=== PATIENT | male | born 1975 | race Caucasian/White ===

== ENCOUNTER 2022-12-30 16:00 | Emergency (ER) | payer OTHER ==
[2022-12-30 18:26] LABS: Basophils % (A) 0 %; Eosinophils # (A) 0.1 k/uL (0-0.7); Eosinophils % (A) 2 %; HCT 43.6 % (39.0-53.0); HGB 14.7 gm/dL (13.0-17.5); Lymphocytes # (A) 1.7 k/uL (1.0-4.8); Lymphocytes % (A) 19 %; MCH 29.9 pg (25.0-35.0); MCHC 33.6 g/dL (31.0-37.0); Mean Platelet Volume 6.9; Monocytes # (A) 0.5 k/uL (0-1.0); Monocytes % (A) 5 %; Neutrophils # (A) 6.5 k/uL (1.3-7.7); Neutrophils % (A) 73 %; Platelet Count 272 k/uL (150-450); RDW 12.1 % (11.5-15.5)
[2022-12-30 18:27] LABS: Appearance,Urine Clear (Clear); Bilirubin,Urine Negative (Negative); Blood,Urine Trace (Negative); Color,Urine Colorless; Glucose,Urine (UA) Negative (Negative); Ketones,Urine Negative (Negative); Leukocyte Esterase,Urine Negative (Negative); Mucus,Urine Rare /hpf; Nitrite,Urine Negative (Negative); PH, Urine 7.5 (5.0-8.0); Protein,Urine Negative (Negative); RBC,Urine 1 /hpf (0-5); Specific Gravity,Urine 1.006 (1.001-1.035); Urobilinogen,Urine <2.0 mg/dL (<2.0)
--- NOTE | 2022-12-30 18:36 | XR ---
EXAMINATION TYPE: XR KUB DATE OF EXAM: 12/30/2022 6:29 PM INDICATION: Patient age:Male; 47 years old; Reason for study: abdominal pain; COMPARISON: None. TECHNIQUE: One radiographic view of the abdomen was obtained. FINDINGS: The bowel gas pattern is nonspecific without dilated loops of small or large bowel. There i s no evidence for organomegaly or pneumoperitoneum. The osseous structures are intact. No abnormal calcifications are present. Fecal material and gas are demonstrated throughout the colon and rectum. IMPRESSION: Nonspecific bowel gas pattern without radiographic evidence for acute process.
[2022-12-30 18:46] LABS: ALT 21 U/L (4-49); AST 20 U/L (17-59); African American GFR (CKD) >90 (>60 ml/min/1.73 sqM); Albumin 4.2 g/dL (3.5-5.0); Alkaline Phosphatase 71 U/L (38-126); Amylase 105 U/L (30-110); Anion Gap 11 mmol/L; Blood Urea Nitrogen 10 mg/dL (9-20); Calcium 9.3 mg/dL (8.4-10.2); Carbon Dioxide 29 mmol/L (22-30); Chloride 103 mmol/L (98-107); Glucose 179 mg/dL (74-99); Lipase 407 U/L (23-300); Non-African American GFR(CKD) >90 (>60 ml/min/1.73 sqM); Potassium 4.1 mmol/L (3.5-5.1); Sodium 143 mmol/L (137-145); Total Bilirubin 0.4 mg/dL (0.2-1.3); Total Protein 7.3 g/dL (6.3-8.2)
[2022-12-30] MEDS ORDERED: LORazepam 2 MG/ML INJ IV STA (19:12)
--- NOTE | 2022-12-30 20:14 | CT ---
EXAMINATION TYPE: CT abdomen pelvis w con CT DLP: 1118.8 mGycm, Automated exposure control for dose reduction was used. DATE OF EXAM: 12/30/2022 8:07 PM COMPARISON: None CLINICAL INDICATION:Male, 47 years old with history of RLQ and periumbilical pain; Abdomen pain, no n ausea/vomiting. Hx of hernia. TECHNIQUE: Axial CT of the abdomen and pelvis. Sagittal and coronal reformats were created on a [employer] workstation. Contrast used:100cc mL of Isovue 300 with IV Contrast, Oral contrast used: without Oral Contrast FINDINGS: LOWER CHEST: Unremarkable ABDOMEN LIVER: Subcentimeter probable hepatic cyst. GALLBLADDER AND BILE DUCTS: Large gallstone present. No gallbladder wall thickening or pericholecysti c fluid. PANCREAS: Unremarkable. SPLEEN: Unremarkable. ADRENAL GLANDS: Unremarkable. KIDNEYS AND URETERS: No evidence of hydronephrosis or renal calculus. The ureters are unremarkable. PELVIS BLADDER: Unremarkable REPRODUCTIVE: Unremarkable. ABDOMEN & PELVIS STOMACH AND BOWEL: No evidence of bowel obstruction. Scattered colonic diverticula. The appendix is v isualized and within normal limits for size. There is high density material within the lumen. PERITONEUM/RETROPERITONEUM: No evidence of pneumoperitoneum or free fluid. VASCULATURE: No evidence of aortic aneurysm. MUSCULOSKELETAL: No acute osseous abnormalities LYMPH NODES: No gross evidence for lymphadenopathy. SOFT TISSUE/ABDOMINAL WALL: Fat-containing umbilical hernia. Bilateral fat-containing inguinal hernia s left greater than right. IMPRESSION: 1. The appendix is visualized and within normal limits for size. High density material within could represent appendicoliths. No evidence for appendicitis. No finding to definitively correlate with pat ient's symptoms. 2. Fat-containing umbilical hernia. 3. No obstructive uropathy or renal calculus. 4. Colonic diverticulosis. 5. Cholelithiasis.
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
[2022-12-30 20:48] VITALS: BP 156/97; PULSE 86; RESP 18; TEMP 98.2
== END 2022-12-30 20:55 | disposition home or self-care (01) ==
LOC: EC 16:00
DX: K38.1 Appendicular concretions (principal); K57.30 Diverticulosis of large intestine without perforation or abscess without bleeding; K80.20 Calculus of gallbladder without cholecystitis without obstruction
CPT/HCPCS: 36415; 80053; 82150; 83605; 83690; 84484; 85025; 81001; 74018; 74177; 99284; 96374; J2060; Q9967